=== PATIENT | male | born 1985 | race Caucasian/White ===

== ENCOUNTER 2017-09-18 21:59 | Emergency (ER) | payer OTHER ==
[~2017-09-18] VITALS: Ht 172.7 cm; Wt 74.2 kg
[2017-09-18 22:10] VITALS: BP 134/79; PULSE 99; RESP 16; TEMP 99.4; O2SAT 96
[2017-09-18] MEDS ORDERED: KETOROLAC TROMETHAMINE 60 MG/2 ML (IM) VIAL IM ONE ×2 (22:30)
--- NOTE | 2017-09-18 22:36 | PD ---
HPI Chief Complaint: sore throat, fever Time Seen by Provider: 22:23 Travel History International Travel<30 days: No Contact w/Intl Traveler<30days: No Traveled to known affect area: No History of Present Illness HPI 32-year-old male here for evaluation of sore throat, fever, generalized malaise. Symptoms started last evening with sore throat. The patient has had continued sore throat throughout the day today as well as decreased energy level. Pain in his throat is sharp, moderate, worse with swallowing. He is able to tolerate his secretions. He has had a slight cough. Daughter at home with some upper respiratory symptoms. No vomiting or diarrhea. He does have some mild epigastric discomfort that she started a couple hours ago. He has not yet taken anything for his symptoms. [facility] Social History Tobacco Use: No Allergies-Medications (Allergen,Severity, Reaction): Coded Allergies: No Known Allergies (Unverified , 09/18/17) Reported Meds & Prescriptions Reported Meds & Active Scripts Active Amoxicillin 875 Mg Tab 875 Mg PO BID 7 Days Reported Sertraline (Sertraline HCl) 100 Mg Tab 100 Mg PO DAILY Olanzapine 10 Mg Tab 10 Mg PO HS Review of Systems Except as stated in HPI: all other systems reviewed are Neg Physical Exam Narrative GENERAL: Well-developed, well-nourished, comfortable, no apparent distress. SKIN: Focused skin assessment warm/dry. No petechiae. No rash. HEAD: Atraumatic. Normocephalic. EYES: Pupils equal and round. No scleral icterus. No injection or drainage. ENT: No nasal bleeding or discharge. Mucous membranes pink and moist. Pharynx with moderate erythema with no exudates. Uvula is midline. Normal phonation. No drooling or stridor. Tolerating secretions. Bilateral tympanic members and external auditory canals are normal. NECK: Trachea midline. No JVD. No lymphadenopathy. No nuchal rigidity. CARDIOVASCULAR: Regular rate and rhythm. RESPIRATORY: No accessory muscle use. Clear to auscultation. Breath sounds equal bilaterally. GASTROINTESTINAL: Abdomen soft, non-tender, nondistended. MUSCULOSKELETAL: No obvious deformities. No clubbing. No cyanosis. No edema. NEUROLOGICAL: Awake and alert. No obvious cranial nerve deficits. Motor grossly within normal limits. Normal speech. PSYCHIATRIC: Appropriate mood and affect; insight and judgment normal. Data Data Last Documented VS Vital Signs Date Time Temp Pulse Resp B/P (MAP) Pulse Ox O2 Delivery O2 Flow Rate FiO2 09/19/17 00:03 72 18 110/71 (84) 96 09/18/17 22:10 99.4 Orders Orders Influenzae A/B Antigen (09/18/17 22:28) Group A Rapid Strep Screen (09/18/17 22:28) Ketorolac Inj (Toradol Inj) (09/18/17 22:30) Strep Culture (Group A) (09/18/17 22:15) Amoxicillin (Trimox) (09/18/17 23:45) Ed Discharge Order (09/18/17 23:38) MDM Medical Decision Making Medical Screen Exam Complete: Yes Emergency Medical Condition: Yes Differential Diagnosis Pharyngitis, strep pharyngitis, influenza, viral illness, URI, deep space neck infection unlikely, meningitis/encephalitis unlikely Narrative Course Vital signs reviewed. Initial heart rate was 99, repeat is 89. Influenza and strep are negative. The patient was given IM Toradol with significant improvement in pain. He is tolerating his secretions. He does have signs of pharyngitis. Plan is to start him on amoxicillin and have him follow-up with a primary care physician this week. He was informed on when to return to the emergency department. He verbalizes understanding and agreement with plan. Diagnosis Primary Impression: Pharyngitis Qualified Codes: J02.9 - Acute pharyngitis, unspecified Referrals: Primary Care Physician 3 days Additional Instructions: Follow-up with a primary care physician this week. Take antibiotic as prescribed. Stay hydrated with plenty of fluids. Return to the emergency department for worsening symptoms or any other concerns. Scripts Amoxicillin (Amoxicillin) 875 Mg Tab 875 MG PO BID for Infection for 7 Days, #14 TAB 0 Refills Prov: Milton Velasquez MD 09/18/17 Disposition: 01 DISCHARGE HOME Condition: Stable Milton Velasquez MD Sep 18, 2017 22:36
[2017-09-18] MEDS ORDERED: OLAN10TA PO ×2 (22:52)
[2017-09-18] MEDS ORDERED: SERT-129 PO ×2 (22:52)
[2017-09-18] MEDS ORDERED: AMOX875T PO ×2 (23:38)
[2017-09-18] MEDS ORDERED: AMOXICILLIN 875 MG TAB PO ONE ×2 (23:45)
[2017-09-18 23:55] VITALS: RESP 18
[2017-09-19 00:03] VITALS: BP 110/71
== END 2017-09-19 00:05 | disposition home or self-care (01) ==
LOC: PHEFT 21:59
DX: J02.9 Acute pharyngitis, unspecified (principal); R05 Cough
CPT/HCPCS: 87081; 87804; 87880; 96372; 99284; J1885

== ENCOUNTER 2018-05-14 17:23 | Emergency (ER) | payer OTHER ==
[~2018-05-14] VITALS: Ht 172.7 cm; Wt 72.5 kg
[~2018-05-14 17:23] MED LIST: AMOX875T PO; OLAN10TA PO; SERT-129 PO
[2018-05-14 17:33] VITALS: BP 152/101; PULSE 75; RESP 18; TEMP 97.7; O2SAT 100
--- NOTE | 2018-05-15 21:06 | EKG ---
Date Performed: 05/14/2018 Time Performed: 17:52:23 PTAGE: 33 years EKG: Sinus rhythm NORMAL ECG NO PREVIOUS TRACING DOCTOR: Jennifer Baldwin Interpretating Date/Time 05/15/2018 21:05:30
== END 2018-05-14 19:16 | disposition left against medical advice (07) ==
LOC: NED 17:23
DX: Z53.21 Procedure and treatment not carried out due to patient leaving prior to being seen by health care provider (principal)
CPT/HCPCS: 93005; 99281